=== PATIENT | male | born 1975 | race Caucasian/White ===

== ENCOUNTER 2018-11-01 11:16 | Emergency (ER) | payer MEDICAID ==
[~2018-11-01] VITALS: Ht 167.6 cm; Wt 79.8 kg
[2018-11-01 11:24] VITALS: Ht 167.6 cm; Wt 79.8 kg
[2018-11-01 13:30] VITALS: BP 137/79
== END 2018-11-01 13:30 | disposition home or self-care (01) ==
LOC: ED 11:16
DX: J03.90 Acute tonsillitis, unspecified (principal); F32.9 Major depressive disorder, single episode, unspecified